=== PATIENT | male | born 1990 | race Caucasian/White ===

== ENCOUNTER 2023-11-10 02:51 | Emergency (ER) | payer OTHER ==
[2023-11-10 03:18] VITALS: BP 116/75; PULSE 82; RESP 20; TEMP 97.7; BMI 37.1
== END 2023-11-10 05:44 | disposition home or self-care (01) ==
LOC: JER 02:51
DX: M79.645 Pain in left finger(s) (principal); M79.89 Other specified soft tissue disorders
CPT/HCPCS: 73130-TC-LT-FY; 99283-25